=== PATIENT | male | born 1985 | race Caucasian/White ===

== ENCOUNTER 2020-12-31 18:54 | Emergency (ER) | payer MEDICAID, OTHER ==
[~2020-12-31 18:54] MED LIST: CHLO25CA10 PO; IBUP-1986 PO; ONDA4TAB6 PO; ZOF4T PO
== END 2020-12-31 20:31 | disposition left against medical advice (07) ==
LOC: ER 18:54
DX: R45.851 Suicidal ideations (principal); Z53.21 Procedure and treatment not carried out due to patient leaving prior to being seen by health care provider